=== PATIENT | female | born 1970 | race Caucasian/White ===

== ENCOUNTER 2017-11-12 19:26 | Emergency (ER) | payer MEDICAID ==
[2017-11-13 02:25] LABS: BASOPHIL % 0.4 % (0-2); PLATELET COUNT 359 x10^3mcL (130-400); RED CELL DISTRIBUTION WIDTH 13.3 % (11.5-14.5)
[2017-11-13 02:37] LABS: CALCIUM 9.5 mg/dL (8.5-10.1); CARBON DIOXIDE 25.4 mmol/L (21-32); CHLORIDE SERUM 102 mmol/L (98-107); CREATININE SERUM 0.7 mg/dL (0.6-1.0); GFR1 > 60 mL/min; GLUCOSE SERUM 227 mg/dL (74-106); POTASSIUM SERUM 3.7 mmol/L (3.5-5.1); SODIUM SERUM 139 mmol/L (136-145)
[2017-11-13 02:41] LABS: ALKALINE PHOSPHATASE 125 U/L (46-116); ALT/SGPT 99 U/L (14-59); AST/SGOT 59 U/L (15-37); BILIRUBIN TOTAL 0.29 mg/dL (0.20-1.00)
[2017-11-13 02:42] LABS: TOTAL PROTEIN, SERUM 8.6 g/dL (6.4-8.2)
[2017-11-13 08:49] VITALS: BP 121/71
== END 2017-11-13 08:49 | disposition home or self-care (01) ==
LOC: ED 19:26
PROVIDERS: Emergency Medicine
DX: J20.9 Acute bronchitis, unspecified (principal); R07.89 Other chest pain; E11.9 Type 2 diabetes mellitus without complications
CPT/HCPCS: 36415; 87804; Q0092